=== PATIENT | male | born 1975 | race Caucasian/White ===

== ENCOUNTER 2021-07-27 16:58 | Emergency (ER) | payer OTHER ==
[~2021-07-27 16:58] MED LIST: AMOXICILLIN PO; PERCOCET 10-321 EACH PO; PERCOCET 5-3251 EACH PO
[2021-07-27] MEDS ORDERED: IBU800 MG PO (18:09)
== END 2021-07-27 18:27 | disposition home or self-care (01) ==
LOC: ER1 16:58
DX: S42.022A Displaced fracture of shaft of left clavicle, initial encounter for closed fracture (principal); I10 Essential (primary) hypertension; V49.40XA Driver injured in collision with unspecified motor vehicles in traffic accident, initial encounter; Y92.410 Unspecified street and highway as the place of occurrence of the external cause
CPT/HCPCS: 71045; 99284

== ENCOUNTER 2022-03-30 19:16 | Emergency (ER) | payer OTHER ==
[~2022-03-30 19:16] MED LIST changes: +IBU800 MG PO
[2022-03-30] MEDS ORDERED: PERCOCET 5/325 T1 EA PO (20:48)
== END 2022-03-30 21:39 | disposition home or self-care (01) ==
LOC: ER1 19:16
DX: S42.031A Displaced fracture of lateral end of right clavicle, initial encounter for closed fracture (principal); F17.200 Nicotine dependence, unspecified, uncomplicated; I10 Essential (primary) hypertension; V29.9XXA Motorcycle rider (driver) (passenger) injured in unspecified traffic accident, initial encounter; Y93.55 Activity, bike riding; Y92.410 Unspecified street and highway as the place of occurrence of the external cause
CPT/HCPCS: 71101; 73000; 73030; 73502; 99284